=== PATIENT | female | born 1985 | race Caucasian/White ===

== ENCOUNTER 2021-09-28 17:20 | Emergency (ER) | payer OTHER ==
[2021-09-28] MEDS ORDERED: TETANUS/DIPHTHERIA/PERTUSSIS 0.5 ML SYRINGE IM ONE (17:36)
[2021-09-28] MEDS ORDERED: ONDANSETRON ODT 4 MG TABLET TL STA (17:36)
[2021-09-28] MEDS ORDERED: HYDROmorphone 1 MG/ML CARPUJECT IM STA (17:36)
--- NOTE | 2021-09-28 17:38 | ED Physician Documentation ---
PD HPI HEAD INJURY - Stated complaint Stated Complaint: HEAD INJ - Chief complaint Chief Complaint: Trauma Hd/Nk - History obtained from History obtained from: Patient, Family - Additional information Additional information: Previously healthy 36-year-old woman was inside her horse trailer at 4:25 PM. Her horse got spooked and basically head butted her and then her left roman catholic went into the side of the trailer. There was possible loss of consciousness. She has a severe headache and wound on the left roman catholic. No other injuries. 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 : None HEENT: None Psych: None Musculoskeletal: Other Derm: None - Past Surgical History Past Surgical History: No - Present Medications Home Medications: Ambulatory Orders Medication Instructions Recorded Confirmed HYDROcod/ACETAM 5/325 [[place] 5/325] 1 - 2 ea PO Q6H PRN #15 tablet 10/03/15 01/08/16 HYDROcod/ACETAM 5/325 [[place] 5/325] 1 - 2 ea PO Q6H PRN #15 tablet 01/08/16 HYDROcod/ACETAM 5/325 [[place] 5/325] 1 - 2 tab PO Q6H PRN #15 tablet 09/28/21 Ondansetron Odt [Zofran] 4 mg TL Q6H PRN #10 tablet 09/28/21 - Allergies Allergies/Adverse Reactions: Allergies Allergy/AdvReac Type Severity Reaction Status Date / Time No Known Drug Allergies Allergy Verified 09/28/21 17:27 - Social History Does the pt smoke?: No Smoking Status: Never smoker Does the pt drink ETOH?: No Does the pt have substance abuse?: No - Immunizations Immunizations are current?: Yes - POLST Patient has POLST: No PD ED PE NORMAL - Vitals Vital signs reviewed: Yes - General General: Alert and oriented X 3, Other (Tearful but alert and oriented) - HEENT HEENT: PERRL, EOMI, Other (On initial evaluation there is a wound on the left roman catholic that is incompletely evaluated due to overlying clot, will perform more complete evaluation after pain control.) - Neck Neck: Supple, no meningeal sign, No bony TTP - Extremities Extremities: No deformity, No tenderness to palpate, Normal ROM s pain, No edema, No calf tenderness / cord - Neuro Neuro: Alert and oriented X 3, No motor deficit, No sensory deficit, Normal speech Eye Opening: Spontaneous Motor: Obeys Commands Verbal: Oriented GCS Score: 15 Results - Vitals Vitals: Vital Signs - 24 hr 09/28/21 17:24 Temperature 36.6 C Heart Rate 65 Respiratory 16 Rate Blood Pressure 102/61 O2 Saturation 100 Oxygen O2 Source Room air - Rads (name of study) CT head Radiology: EMP read contemporaneously (No intracranial injury or skull fracture.) Procedures - Laceration (location) Left roman catholic Length in cm: 1.5 Wound type: Linear Anesthesia: Lidocaine 1% with epi Wound preparation: Irrigated copiously NS Skin layer closure: Other (5-0 Vicryl, 2 interrupted sutures) Other: Patient tolerated well, No complications, Neurovascular intact, Tetanus booster given Departure - Departure Disposition: 01 Home, Self Care Clinical Impression: Scalp laceration Qualifiers: Encounter type: initial encounter Qualified Code(s): S01.01XA - Laceration without foreign body of scalp, initial encounter Concussion Qualifiers: Encounter type: initial encounter Loss of consciousness presence/duration: without LOC Qualified Code(s): S06.0X0A - Concussion without loss of consciousness, initial encounter Condition: Good Record reviewed to determine appropriate education?: Yes Instructions: ED Laceration Scalp Stitch Or Stap Prescriptions: HYDROcod/ACETAM 5/325 [[place] 5/325] 1 - 2 tab PO Q6H PRN #15 tablet PRN Reason: Pain Ondansetron Odt [Zofran] 4 mg TL Q6H PRN #10 tablet PRN Reason: Nausea / Vomiting Comments: Sutures are absorbable, do not require any specific care. Fine to shower and shampoo. I sent your prescription electronically to [facility] in [place]. Return for new or worsening symptoms. I am prescribing a short course of narcotic pain medication for you. These are potentially dangerous and addictive medications that should be used carefully. These medications may constipate you. Take an xvpp-vqb-wjaxpor stool softener (docusate) twice daily with plenty of water while taking these medications. If you go 24 hours without a bowel movement, take nzvo-vxj-cahazun miralax, per package instructions. Do not drink or drive while taking these medications. If you received narcotic or sedating medications while in the emergency department, do not drive for 24 hours. Store this medication in a safe, secure place and out of reach of children. It is a violation of federal law to give or sell this medication to another person or to use in a manner other than prescribed. The ED will not refill narcotic prescriptions, including prescriptions lost or stolen. To dispose of unwanted medications: 1. [facility] [address] in [place] has a medication drop box. They accept prescription medications (in pill form) Thursday through Thursday 9:00 a.m. to 5:00 p.m. 2. The [facility] [employer] accepts prescription medications (in pill form only) for disposal year round. Call for more information. 3. Contact the [facility] for the next [facility] sponsored prescription drug collection event. , [phone], or [phone]; Note that many narcotic pain relievers also contain Tylenol/acetaminophen. Please ensure that your total dose of acetaminophen from all sources does not exceed 3 g (3000 mg) per day.
[2021-09-28] MEDS ORDERED: LIDOCAINE 1%-EPI 1:100000 20 ML MDV SUBQ STA (18:02)
--- NOTE | 2021-09-28 18:10 | CT Report ---
PROCEDURE: HEAD WO INDICATIONS: head inj TECHNIQUE: Noncontrast 4.5 mm thick angled axial sections acquired from the foramen magnum to the vertex. For r adiation dose reduction, the following was used: automated exposure control, adjustment of mA and/or kV according to patient size. COMPARISON: None. FINDINGS: Image quality: Excellent. CSF spaces: Basal cisterns are patent. No extra-axial fluid collections. Ventricles are normal in size and shape. Brain: No midline shift. No intracranial masses or hemorrhage. Abdi-white matter interface is norm al. Skull and face: Mild soft tissue laceration can be seen involving the left temporal region. No underl estefania calvarial fracture is seen. Calvarium and visualized facial bones are intact, without suspicious lesions. Sinuses: Visualized sinuses and mastoids are clear. IMPRESSION: No intracranial hemorrhage is seen. No significant intracranial abnormality is seen. Left scalp laceration seen, without an associated fracture identified. Reviewed by: Carl Andrea MD on 09/28/2021 5:08 PM NICOLE Approved by: Carl Andrea MD on 09/28/2021 5:08 PM AKROLANDO Station ID: [id number]
[2021-09-28] MEDS ORDERED: HYDROcod/ACET 5/325 Prepack 4 PO STA (18:22)
[2021-09-28] MEDS ORDERED: ONDANSETRON ODT 4 MG Prepack 2 TL STA (18:22)
[2021-09-28 18:44] VITALS: BP 95/67
== END 2021-09-28 18:44 | disposition home or self-care (01) ==
LOC: ED 17:20
DX: S01.01XA Laceration without foreign body of scalp, initial encounter (principal); S06.0X0A Concussion without loss of consciousness, initial encounter; W55.12XA Struck by horse, initial encounter; Z23 Encounter for immunization
CPT/HCPCS: 12011; 70450; 90471; 90715; 96372; 99282; 99284; J1170; Q0162

== ENCOUNTER 2023-11-14 09:48 | Emergency (ER) | payer OTHER ==
[2023-11-14 10:18] LABS: BASOPHILS # (AUTO) 0.1 10^3/uL (0.0-0.1); BASOPHILS % (AUTO) 0.6 %; EOSINOPHILS # (AUTO) 0.1 10^3/uL (0.0-0.7); EOSINOPHILS % (AUTO) 1.5 %; HCT - HEMATOCRIT 42.8 % (37.0-47.0); HGB - HEMOGLOBIN 14.3 g/dL (12.0-16.0); LYMPHOCYTES # (AUTO) 2.4 10^3/uL (1.5-3.5); LYMPHOCYTES % (AUTO) 29.7 %; MEAN CORPUSCULAR HEMOGLOBIN 31.1 pg (27.0-31.0); MEAN CORPUSCULAR HGB CONC 33.4 g/dL (32.0-36.0); MEAN PLATELET VOLUME 10.3 fL (7.9-10.8); MONOCYTES # (AUTO) 0.4 10^3/uL (0.0-1.0); MONOCYTES % (AUTO) 4.5 %; NEUTROPHILS # (AUTO) 5.2 10^3/uL (1.5-6.6); NEUTROPHILS % (AUTO) 63.5 %; PLT - PLATELET COUNT 293 10^3/uL (130-450); RED CELL DISTRIBUTION WIDTH 12.1 % (12.0-15.0); WHITE BLOOD COUNT 8.1 x10^3/uL (4.8-10.8)
[2023-11-14] MEDS: SODIUM CHLORIDE 0.9% 1,000 ML IV STA (10:19)
[2023-11-14] MEDS: KETOROLAC 30 MG/ML VIAL IVP STA (10:19)
[2023-11-14] MEDS: DROPERIDOL 5 MG/2 ML VIAL IVP STA (10:19)
--- NOTE | 2023-11-14 10:21 | ED Physician Documentation ---
History of Present Illness - Stated complaint Stated Complaint: DIZZY - Chief complaint Chief Complaint: Neuro - History obtained from History obtained from: Patient - History of Present Illness Pain level max: 0 Pain level now: 0 - Additonal information Additional information: Patient is a 38-year-old female presents to the emergency department complaining of vertigo for the past 2 days. She states she has had several episodes in the past that felt similar and she states that they were told they were "migraines". She states she has no headache. Worse with movement, better with lying still with her eyes closed. Took Dramamine this morning without relief. No falls. No trauma. No fevers. No chills. Denies any possibility of . Has had nausea and vomiting. No ear pain. No recent URI symptoms. 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 : None HEENT: None Psych: None Musculoskeletal: Other Derm: None - Past Surgical History Past Surgical History: No - Present Medications Home Medications: Ambulatory Orders Medication Instructions Recorded Confirmed Meclizine HCl 25 mg PO Q6H PRN #30 tab 11/14/23 Ondansetron Odt [Zofran] 4 mg TL Q6H PRN #10 tablet 11/14/23 - Allergies Allergies/Adverse Reactions: Allergies Allergy/AdvReac Type Severity Reaction Status Date / Time No Known Drug Allergies Allergy Verified 11/14/23 09:53 - Social History Does the pt smoke?: No Smoking Status: Never smoker Does the pt drink ETOH?: No Does the pt have substance abuse?: No - Immunizations Immunizations are current?: Yes - POLST Patient has POLST: No PD ED PE NORMAL - Vitals Vital signs reviewed: Yes - General General: Alert and oriented X 3, No acute distress - HEENT HEENT: PERRL, Ears normal, Moist mucous membranes, Pharynx benign - Neck Neck: Supple, no meningeal sign - Cardiac Cardiac: RRR, Strong equal pulses - Respiratory Respiratory: No respiratory distress, Clear bilaterally - Abdomen Abdomen: Soft, Non tender, Non distended - Back Back: No CVA TTP, No spinal TTP - Derm Derm: Warm and dry - Extremities Extremities: No edema, No calf tenderness / cord - Neuro Neuro: Alert and oriented X 3, crystallizer operator 2-12 intact, No motor deficit, No sensory deficit, Normal speech, Other (Positive nystagmus to the left, horizontal. + hallpike to the L) Eye Opening: Spontaneous Motor: Obeys Commands Verbal: Oriented GCS Score: 15 - Psych Psych: Normal mood, Normal affect Results - Vitals Vitals: Vital Signs - 24 hr 11/14/23 09:53 Temperature 36.6 C Heart Rate 66 Respiratory 18 Rate Blood Pressure 122/81 H O2 Saturation 100 Oxygen O2 Source Room air - Labs Labs: Laboratory Tests 11/14/23 11/14/23 10:10 10:10 WBC 8.1 RBC 4.60 Hgb 14.3 Hct 42.8 MCV 93.0 MCH 31.1 H MCHC 33.4 RDW 12.1 Plt Count 293 MPV 10.3 Neut # (Auto) 5.2 Lymph # (Auto) 2.4 [place] # (Auto) 0.4 Eos # (Auto) 0.1 Baso # (Auto) 0.1 Absolute Nucleated RBC 0.00 Nucleated RBC % 0.0 Sodium 140 Potassium 3.6 Chloride 106 Carbon Dioxide 26 Anion Gap 8.0 BUN 18 Creatinine 0.9 Estimated GFR (MDRD) 70 L Glucose 87 Calcium 9.6 Total Bilirubin 1.1 H AST 9 L ALT 11 Alkaline Phosphatase 37 L Total Protein 7.0 Albumin 4.5 Globulin 2.5 Albumin/Globulin Ratio 1.8 Lipase 13 PD Medical Decision Making - ED course Complexity details: reviewed results, re-evaluated patient, considered differential, d/w patient ED course: 38-year-old female with what appears to be BPPV, left ear likely affected. Horizontal nystagmus, no indication for emergent neuroimaging. Feels better after Toradol, droperidol and meclizine. Still having some dizziness but much improved. Recommend repositioning maneuvers at home. Will prescribe Zofran and meclizine for home. Normal cerebellar testing. Patient counseled regarding signs and symptoms for which I believe and urgent re-evaluation would be necessary. Patient with good understanding of and agreement to plan and is comfortable going home at this time This document was made in part using voice recognition software. While efforts are made to proofread this document, sound alike and grammatical errors may occur. Departure - Departure Disposition: 01 Home, Self Care Clinical Impression: Vertigo Condition: Good Instructions: ED BPV Vertigo Follow-Up: your,doctor in 1 week [Other] Prescriptions: Meclizine HCl 25 mg PO Q6H PRN #30 tab PRN Reason: Dizziness Ondansetron Odt [Zofran] 4 mg TL Q6H PRN #10 tablet PRN Reason: Nausea / Vomiting Comments: Your prescriptions were sent to [facility] in [place]. Please use the medications as prescribed. You can try repositioning maneuvers such as the Jenny maneuver or half somersault maneuver for vertigo at home. Instructions for these can be found on YouTube. Your left ear is the ear effected today. Forms: PCP List
[2023-11-14 10:31] LABS: ALBUMIN 4.5 g/dL (3.2-5.5); ALBUMIN/GLOBULIN RATIO 1.8 (1.0-2.2); BILIRUBIN,TOTAL 1.1 mg/dL (0.2-1.0); CALCIUM 9.6 mg/dL (8.5-10.3); CREATININE 0.9 mg/dL (0.6-1.3); POTASSIUM 3.6 mmol/L (3.5-4.5)
[2023-11-14] MEDS: MECLIZINE 12.5 MG TABLET PO STA (11:39)
[2023-11-14 12:12] VITALS: BP 110/78; O2SAT 98
== END 2023-11-14 12:03 | disposition home or self-care (01) ==
LOC: ED 09:48
DX: R42 Dizziness and giddiness (principal)
CPT/HCPCS: 36415; 80053; 83690; 85025; 96374; 99283; A9270

== ENCOUNTER 2024-02-24 15:48 | Emergency (ER) | payer OTHER ==
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
[2024-02-24 15:57] VITALS: O2SAT 100
[2024-02-24 16:58] LABS: BILIRUBIN,URINE NEGATIVE (NEGATIVE); GLUCOSE, URINE (UA) NEGATIVE (NEGATIVE); KETONES,URINE (UA) NEGATIVE (NEGATIVE); LEUKOCYTE ESTERASE, URINE SMALL (NEGATIVE); NITRITE,URINE NEGATIVE (NEGATIVE); OCCULT BLOOD,URINE NEGATIVE (NEGATIVE); PH,URINE 5.5 PH (5.0-7.5); PROTEIN,URINE NEGATIVE (NEGATIVE); UROBILINOGEN,URINE 0.2 (NORMAL) E.U./dL (NORMAL)
[2024-02-24 17:03] VITALS: BP 106/72
[2024-02-24 17:04] LABS: CLARITY,URINE CLEAR (CLEAR)
[2024-02-24 17:14] LABS: AMPHETAMINE SCREEN,URINE NEGATIVE (NEGATIVE); BARBITURATE SCREEN,UR NEGATIVE (NEGATIVE); BENZODIAZEPINES SCREEN, URINE NEGATIVE (NEGATIVE); BUPRENORPHINE SCREEN, URINE NEGATIVE (NEGATIVE); COCAINE SCREEN URINE NEGATIVE (NEGATIVE); METHADONE SCREEN, URINE NEGATIVE (NEGATIVE); METHAMPHETAMINES SCREEN, URINE NEGATIVE (NEGATIVE); OPIATE SCREEN, URINE NEGATIVE (NEGATIVE); OXYCODONE SCREEN, URINE NEGATIVE (NEGATIVE); THC CANNABINOID SCREEN, URINE NEGATIVE (NEGATIVE); TRICYCLIC ANTIDEPRESSANT,URINE NEGATIVE (NEGATIVE)
== END 2024-02-24 16:57 | disposition home or self-care (01) ==
LOC: ED 15:48
DX: Z02.89 Encounter for other administrative examinations (principal)
CPT/HCPCS: 80306; 81003; 82077; 99282; 99283